=== PATIENT | female | born 1965 | race Caucasian/White ===

== ENCOUNTER → 2016-05-18 | Outpatient (CLI) | payer BC ==
[~2016-05-18] MED LIST: ASCO100T PO; ATV1HP PO; B-COTAB18 PO; BUPR-79 PO; BUPR-83 PO; CEFU1TAB36 PO; CONJ.6255 PO; ESCI10TA17 PO; LORA-741 PO; MAGN400T7 PO; OXYC1TAB3 PO; PRT/20 PO
== END | disposition home or self-care (01) ==
LOC: C.LABSPEC 10:58
PROVIDERS: ATTEND Obstetrics & Gynecology
DX: N89.8 Other specified noninflammatory disorders of vagina (principal)

== ENCOUNTER → 2016-05-18 | Outpatient (CLI) | payer BC | END | disposition home or self-care (01) | LOC: C.PATHSPEC 17:24 | PROVIDERS: ATTEND Plastic Surgery | DX: L72.9 Follicular cyst of the skin and subcutaneous tissue, unspecified (principal) ==

== ENCOUNTER 2016-07-10 06:38 | Emergency (ER) | payer BC ==
[~2016-07-10] VITALS: Ht 162.6 cm; Wt 79.3 kg
[~2016-07-10 06:38] MED LIST changes: -ASCO100T PO; +ASCO100T4 PO; -BUPR-79 PO; -BUPR-83 PO; -LORA-741 PO; -OXYC1TAB3 PO; -PRT/20 PO
[2016-07-10 06:41] VITALS: TEMP 36.9; Ht 162.6 cm; Wt 79.3 kg
[2016-07-10] MEDS ORDERED: LORA-741 PO (07:03)
[2016-07-10] MEDS ORDERED: BUPR-83 PO ×2 (07:04)
[2016-07-10] MEDS ORDERED: OXYCODONE HCL IR 5 MG TAB (IMMEDIATE RELEASE) PO STA (07:18)
[2016-07-10] MEDS ORDERED: DIPHTHERIA/TETANUS/PERTUSSIS 0.5 ML SYR/VIAL IM. ONE (07:30)
[2016-07-10] MEDS ORDERED: XYLOCAINE 1%/SOD BICARB 20 ML VIAL INFIL ONE (07:30)
--- NOTE | 2016-07-10 08:10 | EMERGENCY ROOM VISIT NOTE ---
ED Visit Note First contact with patient: 07:02 CHIEF COMPLAINT: Infection on the right breast 5 days HISTORY OF PRESENT ILLNESS: Patient is a 50-year-old white female who presents the emergency department for evaluation of an infection involving her lateral right breast. She states it about a week ago she noticed a "lump" on the breast. She admits that she picked at it, and it got a little bit bruised, then over the last 5 days became more tender, swollen, became red and firm to the touch. She was seen at [facility] 2 days ago and started on cefuroxime 500 mg twice a day. She has had a total of 5 doses of the antibiotic. She states that overnight, she noted blood and pus like drainage on her shirt. She has not had any fevers although reports feeling fatigued. She has showered and cleansed the area with soap and water, otherwise is supple for many other interventions. She does report a history of abscesses which have required drainage, usually in her bikini line. She has been told that she might have hydradenitis. She denies a history of MRSA. REVIEW OF SYSTEMS: Review of systems as per HPI. All other systems reviewed were negative. At least 6 systems reviewed. PMH: Electronic medical records are reviewed and summarized as above/below. See Problem List. Her tetanus is not up-to-date. SOCIAL HISTORY: Patient lives at home with her . PHYSICAL EXAM: Vital Signs: Reviewed Nurse's notes. CONSTITUTIONAL: Patient is a well-appearing, slightly anxious 60-year-old white female who is awake and alert and in no acute distress. INTEGUMENTARY: Examination of the right breast show a small eroded ulceration just off of the nipple at 9:00, with associated induration and surrounding erythema. The area is tender to palpation centrally. There is slight fluctuance noted. No axial lymphadenopathy appreciated. EMERGENCY DEPARTMENT COURSE: The patient was medicated with oxycodone 5 mg orally. Tetanus was updated. The area was cleansed with Betadine and draped sterilely. 1% plain buffered lidocaine was infiltrated around the opening in the abscess, and it was opened slightly using an 11 blade. A small amount of purulent material was present and a culture was obtained and is pending. The cavity was probed for loculations and there were none. There was some sebaceous material present in the base of the wound which was irrigated copiously with normal saline solution. I suspect the patient has a sebaceous cyst in this area which became infected. Part of a 2 x 2 was dipped in Betadine and placed in the wound as packing. Wound care measures were discussed with the patient. She was encouraged to continue the cefuroxime, pending cultures, as she does have several antibiotic allergies . She has some surrounding erythema but does not have evidence for overt cellulitis or mastitis. She was advised that the cyst is potentially the abscess could recur and was encouraged to follow-up with her PCP when the infection has healed she may benefit from referral to the breast care center. The patient was discharged home in good condition with her driving. She rated her discomfort a 2/10 at that time. Problem List Medical Problems: (1) Anxiety Status: Chronic (2) Anxiety Status: Resolved (3) Depression Status: Chronic (4) Hyperlipidemia Nec/Nos Status: Chronic (5) Vertigo Status: Chronic Current/Historical Medications Scheduled Bupropion (Wellbutrin), 100 MG PO QAM Bupropion (Wellbutrin), 150 MG PO HS Cefuroxime Axetil (Cefuroxime Axetil), 1 TAB PO BID Escitalopram (Lexapro), 5 MG PO QPM Scheduled PRN Lorazepam (Ativan), 0.5 MG PO DAILY PRN for Anxiety and/or Sedation Oxycodone Immediate Rel Tab (Roxicodone Ir), 1-2 TAB PO Q4H PRN for Severe Pain Allergies Coded Allergies: Ampicillin (Verified Allergy, Severe, hives, 07/10/16) Minocycline (Verified Allergy, Unknown, UNK, 07/10/16) Sulfamethoxazole w/Trimethoprim (Verified Allergy, Unknown, UNK, 07/10/16) Vital Signs Date Time Temp Pulse Resp B/P Pulse Ox O2 Delivery O2 Flow Rate FiO2 07/10/16 08:30 78 18 126/77 98 07/10/16 06:41 36.9 86 20 132/88 97 Room Air Medications Administered Medications (Trade) Dose Ordered Sig/Az Route Start Time Stop Time Status Last Admin Dose Admin Diphtheria/ Pertussis/Tetanus Vacc (Adacel Inj) 0.5 ml ONCE ONCE IM. 07/10/16 07:30 07/10/16 07:31 DC 07/10/16 07:31 0.5 ML Oxycodone HCl (Roxicodone Immediate Rel Tab) 5 mg NOW STAT PO 07/10/16 07:18 07/10/16 07:19 DC 07/10/16 07:29 5 MG Departure Information Impression Primary Impression: Breast abscess Prescriptions Oxycodone Immediate Rel Tab (ROXICODONE IR) 5 Mg Tab 1-2 TAB PO Q4H Y for Severe Pain, #15 TAB For Initial Treatment Prov: Shoshana Duron PA 07/10/16 Referrals Pro,Herberth Boucher M.D. (PCP) Patient Instructions My [facility] Additional Instructions DO NOT drive, drink alcohol, operate machinery, or perform dangerous activities today. You were given medications in the ER that can affect your ability to safely function or operate a vehicle. Oxycodone (OxyIR) 5mg: Take 1-2 pills every four hours for breakthrough pain. Avoid alcohol, operating machinery or dangerous equipment, working on ladders or roofs, DRIVING, or situations where being under the influence may be dangerous. It is recommended to use an [id number] stool softener such as Colace, 100mg twice daily while taking this medication to avoid constipation. Finish cefuroxime as previously prescribed. Ibuprofen(Motrin, Advil) may be used for fever or pain. Use 600mg every six hours as needed. Take with food. Avoid using more than 2400mg in a 24 hour period. Do not use 2400mg per day for more than three consecutive days without physician direction. Prolonged inappropriate use can lead to stomach upset or ulcers. This is available over the counter and typically comes in 200mg tablets. (AND/OR) Acetaminophen(Tylenol) may be used for fever or pain. Use 1000mg every eight hours as needed. Avoid using more than 3000mg in a 24 hour period. This is available over the counter. Read all the package inserts or medication information paperwork provided. If you have any questions or concerns call your primary provider, pharmacist or the ER for assistance. Warm compresses to the affected area 4 times daily for 15-20 minutes. Dressing changes daily, more often if the bandage becomes saturated or soiled. Packing removal in 48 hours. Careful to not inadvertently removed the packing when changing the bandage were evening. Rest and drink plenty of fluids. Continue current medications. Return to the ER for severe pain, persistent fevers, spreading redness, or any worsening of your condition. Follow up with your primary physician as scheduled. You may require referral to the breast care center/breast surgeon for further care and evaluation once the area has healed.
[2016-07-10] MEDS ORDERED: OXYC1TAB3 PO (08:11)
[2016-07-10 08:30] VITALS: BP 126/77; PULSE 78; O2SAT 98
[2016-11-09] MEDS ORDERED: BUPR-79 PO (07:45)
[2016-11-09] MEDS ORDERED: PRT/20 PO (07:45)
== END 2016-07-10 08:37 | disposition home or self-care (01) ==
LOC: C.EDB 06:39
DX: N61.1 Abscess of the breast and nipple (principal); F41.9 Anxiety disorder, unspecified; F32.9 Major depressive disorder, single episode, unspecified; E78.5 Hyperlipidemia, unspecified; R42 Dizziness and giddiness; Z79.899 Other long term (current) drug therapy

== ENCOUNTER → 2016-08-09 | Outpatient (CLI) | payer BC ==
[~2016-08-09] MED LIST changes: -ASCO100T4 PO; -ATV1HP PO; -B-COTAB18 PO; +BUPR-79 PO; +BUPR-83 PO; -CONJ.6255 PO; +LORA-741 PO; -MAGN400T7 PO; +OXYC1TAB3 PO; +PRT/20 PO
--- NOTE | 2016-08-09 14:10 | MAMMOGRAPHY REPORT ---
ULTRASOUND OF RIGHT BREAST: 08/09/2016 CLINICAL HISTORY: The patient was seen in the emergency room on 07/10/2016 for a breast abscess, which was lanced in the emergency room and packed and the patient was placed on antibiotics. She reports that she is no longer packing the wound and it is no longer painful. COMPARISON: Comparison is made to exams dated: 11/16/2011 ultrasound, 11/09/2011 mammogram, and 11/16/19 mammogram - [facility]. TECHNIQUE: Real-time targeted ultrasound of the right breast was performed. FINDINGS: Real-time, high-resolution targeted ultrasound was performed of the previous abscess pointed out by the patient, in the right breast at approximately 9:00, 4 cm from the nipple. At the site of the re sidual wound there is mild focal hypo-echogenicity of the skin, measuring 2.4 x 0.1 cm. No focal fl uid collection is seen within the skin or in the underlying breast parenchyma to suggest residual ab scess. No suspicious masses are noted. Note that the patient is due for bilateral mammograms, however, the patient declined mammography tod ay due to concerns about compressing the wound. IMPRESSION: ACR BI-RADS CATEGORY 2: BENIGN - FOLLOW-UP RECOMMENDED No evidence of residual abscess at the site of the healing wound from recent abscess drainage in the right breast at approximately 9:00. There is no sonographic evidence of malignancy. Recommend clin ical follow-up; the patient reports she will be seeing Dr. Bernal today. The patient is also due for bilateral yearly mammograms, which she declined today; these should be performed as soon as the patient can tolerate compression. The patient was verbally notified of the results. Sara Tate M.D. /:08/09/2016 08:59:04 Front End Developer: Sara Tate MD, [facility] letter sent: Normal 1/2 BI-RADS Code: ACR BI-RADS Category 2: Benign
== END | disposition home or self-care (01) ==
LOC: C.MAMM 08:09
PROVIDERS: ATTEND Nurse Practitioner Adult Health
DX: N61.1 Abscess of the breast and nipple (principal)

== ENCOUNTER → 2016-10-25 | Outpatient (CLI) | payer BC ==
[2016-10-25 16:57] LABS: URINE APPEARANCE CLEAR (CLEAR); URINE BILIRUBIN NEG (NEG); URINE COLOR YELLOW; URINE NITRITE NEG (NEG); URINE PH 6.5 (4.5-7.5); URINE SPECIFIC GRAVITY 1.006 (1.000-1.030); UROBILINOGEN NEG (NEG)
[2016-10-25 17:00] LABS: MANUAL MICROSCOPIC REQUIRED? NO; REVIEW REQ? YES
== END | disposition home or self-care (01) ==
LOC: C.LABSPEC 16:18
PROVIDERS: ATTEND Obstetrics & Gynecology
DX: R35.0 Frequency of micturition (principal)

== ENCOUNTER → 2016-10-25 | Outpatient (CLI) | payer BC | END | disposition home or self-care (01) | LOC: C.PAPS 17:08 | PROVIDERS: ATTEND Obstetrics & Gynecology | DX: Z01.419 Encounter for gynecological examination (general) (routine) without abnormal findings (principal) ==

== ENCOUNTER → 2016-11-21 | Day surgery (SDC) | payer BC ==
[2016-11-09 07:45] VITALS: Ht 162.6 cm; Wt 84.1 kg
[~2016-11-21] VITALS: Ht 162.6 cm; Wt 84.1 kg
[~2016-11-21] MED LIST changes: -BUPR-83 PO; -CEFU1TAB36 PO; -ESCI10TA17 PO; +FENTANYL CITRATE INJ 50 MCG/1 ML 2 ML VIAL ONE; +LIDOCAINE HCL 2% 2 ML VIAL (20MG/ML) ONE; -OXYC1TAB3 PO; +PROPOFOL IV EMULSION 10 MG/ML 20 ML VIAL IV ONE; +SODIUM CHLORIDE 0.9% 500ML 500 ML IV ONE
[2016-11-21 09:40] VITALS: TEMP 37.2
--- NOTE | 2016-11-21 09:55 | Endo History and Physical ---
History & Physical Date of Service: Nov 21, 2016. Chief Complaint: acid reflux Referring Physician: Dr. Herberth Kidd History of Present Illness 50 yo CF who presents for EGD secondary to GERD. Past Surgical History Hx Cardiac Surgery: No Hx Internal Defibrillator: No Hx Pacemaker: No Hx Abdominal Surgery: Yes (UMBILICAL HERNIA REPAIR) Hx of Implantable Prosthesis: No Hx Post-Op Nausea and Vomiting: Yes Hx Cancer Surgery: No Hx Thoracic Surgery: No Hx Orthopedic: No Hx Urinary Tract Surgery: No Family History None Social History Smoking Status: Former Smoker Hx Substance Use: No Hx Alcohol Use: No Allergies Coded Allergies: Ampicillin (Verified Allergy, Severe, HIVES, 11/09/16) Minocycline (Verified Allergy, Unknown, VIOLENT EMESIS, 11/09/16) Sulfamethoxazole w/Trimethoprim (Verified Allergy, Unknown, "PASSED OUT", 11/09/16) Current Medications Reported Home Medications Medications Dose Route/Sig Max Daily Dose Days Date Category Protonix (Pantoprazole Sodium) 20 Mg Tab 20 Mg PO QAM 11/09/16 Reported Wellbutrin Sr (Bupropion HCl) 150 Mg Ertab 150 Mg PO BID 11/09/16 Reported Ativan (Lorazepam) 0.5 Mg Tab 0.5 Mg PO DAILY PRN 07/10/16 Reported Vital Signs Weight (Kilograms): 84.09 Height (Feet): 5 Height (Inches): 4 Date Time Temp Pulse Resp B/P (MAP) Pulse Ox O2 Delivery O2 Flow Rate FiO2 11/21/16 09:40 37.2 87 16 132/78 (96) 100 Room Air Physical Exam General Appearance: WD/WN, no apparent distress Respiratory/Chest: Auscultation: breath sounds normal Cardiovascular: Heart Auscultation: RRR Abdomen: Bowel Sounds: normal Inspection & Palpation: soft, non-distended, no tenderness, guarding & rebound Assessment and Plan Assessment: 50 yo CF who presents for EGD secondary to GERD. Plan: Proceed with EGD
--- NOTE | 2016-11-21 10:14 | GI REPORT ---
Procedure Date: 11/21/2016 9:59 AM Procedure: Upper GI endoscopy Indications: Gastro-esophageal reflux disease Medicines: Monitored Anesthesia Care Complications: No immediate complications. Estimated Blood Loss: Estimated blood loss: none. Procedure: Pre-Anesthesia Assessment: - Prior to the procedure, a History and Physical was performed, and patient medications and allergies were reviewed. The patient's tolerance of previous anesthesia was also reviewed. The risks and benefits of the procedure and the sedation options and risks were discussed with the patient. All questions were answered, and informed consent was obtained. Prior Anticoagulants: The patient has taken no previous anticoagulant or antiplatelet agents. ASA Grade Assessment: II - A patient with mild systemic disease. After reviewing the risks and benefits, the patient was deemed in satisfactory condition to undergo the procedure. After obtaining informed consent, the endoscope was passed under direct vision. Throughout the procedure, the patient's blood pressure, pulse, and oxygen saturations were monitored continuously. The scope was introduced through the mouth, and advanced to the second part of duodenum. The upper GI endoscopy was accomplished without difficulty. The patient tolerated the procedure well. Findings: The esophagus was normal. The entire examined stomach was normal. Biopsies were taken with a cold forceps for histology. The examined duodenum was normal. Impression: - Normal esophagus. - Normal stomach. Biopsied. - Normal examined duodenum. Recommendation: - Resume previous diet. - Continue present medications. - Await pathology results. - Return to primary care physician as previously scheduled. Kvng Valdez DO 11/21/2016 10:14:16 AM This report has been signed electronically. Note Initiated On: 11/21/2016 9:59 AM I attest to the content of the Intraoperative Record and orders documented therein, exceptions below
--- NOTE | 2016-11-21 10:20 | Discharge Instructions ---
Endoscopy Patient Instructions Date / Procedure(s) Performed Nov 21, 2016. EGD Allergy Information Coded Allergies: Ampicillin (Verified Allergy, Severe, HIVES, 11/09/16) Minocycline (Verified Allergy, Unknown, VIOLENT EMESIS, 11/09/16) Sulfamethoxazole w/Trimethoprim (Verified Allergy, Unknown, "PASSED OUT", 11/09/16) Discharge Date / Findings Nov 21, 2016. Gastric antrum biopsies Medication Instructions OK to resume all medications today as prescribed Reported Home Medications Medications Dose Route/Sig Max Daily Dose Days Date Category Protonix (Pantoprazole Sodium) 20 Mg Tab 20 Mg PO QAM 11/09/16 Reported Wellbutrin Sr (Bupropion HCl) 150 Mg Ertab 150 Mg PO BID 11/09/16 Reported Ativan (Lorazepam) 0.5 Mg Tab 0.5 Mg PO DAILY PRN 07/10/16 Reported Provider Instructions Activity Restrictions - No exercising or heavy lifting for 24 hours. - Do not drink alcohol the day of the procedure. - Do not drive a car or operate machinery until the day after the procedure. - Do not make any important decisions or sign important papers in 24 hours after the procedure. Following Day: - Return to full activity which may include returning to work/school. Diet Start your diet with liquids and light foods (jello, soup, juice, toast). Then eat your usual diet if not nauseated. Treatment For Common After Affects For mild abdominal pain, bloating, or excessive gas: - Rest - Eat lightly - Lie on right side Follow-Up Information Follow-up with Dr. Herberth Kidd as scheduled Anesthesia Information What You Should Know You have had a procedure that required some medicine to reduce anxiety and discomfort. This treatment is called moderate sedation. After receiving the treatment, you may be sleepy, but you will be able to breathe on your own. The effects of the treatment may last for several hours. Follow these instructions along with Activity/Diet recommendations noted above: * Do NOT do anything where dizziness or clumsiness would be dangerous. * Rest quietly at home today, then you can be up and about tomorrow. * Have a responsible person stay with you the rest of today. * You may have had an I.V. today. If so, you may take the dressing off later today. Recommendations Call your doctor if: * Trouble breathing * Continuous vomiting for more than 24 hours * Temperature above 101 degrees * Severe abdominal pain or bloating * Pain not relieved by pain medicine ordered * There is increased drainage or redness from any incision * A large amount of rectal bleeding greater than 2-3 tablespoons. (If you had a polyp/s removed or have hemorrhoids, a small amount of blood - from the rectum is to be expected.) * You have any unanswered questions or concerns. IN THE EVENT OF A SERIOUS EMERGENCY, GO TO THE NEAREST EMERGENCY ROOM Your discharge instructions were prepared by provider Kvng Valdez. Patient Instructions Signature Page Chen Hdez Patient (or Guardian) Signature/Date: I have read and understand the instructions given to me by my caregivers. Caregiver/RN/Doctor Signature/Date: The above-named patient and/or guardian has received patient instructions on this date. + Original Patient Signature Page (only) stays with chart. Please make copy for patient.
[2016-11-21 10:42] VITALS: BP 115/78; PULSE 74; O2SAT 98
--- NOTE | 2016-11-21 10:50 | Anesthesiology Progress Note ---
Anesthesia Post Op Note Date & Time Nov 21, 2016 at 10:50 Vital Signs Pain Intensity: 0 Vital Signs Past 12 Hours Date Time Temp Pulse Resp B/P (MAP) Pulse Ox O2 Delivery O2 Flow Rate FiO2 11/21/16 10:42 74 16 115/78 (90) 98 Room Air 11/21/16 10:27 82 16 116/76 (89) 97 Room Air 11/21/16 10:12 86 16 107/68 (81) 100 Room Air 11/21/16 09:40 37.2 87 16 132/78 (96) 100 Room Air Notes Mental Status: alert / awake / arousable, participated in evaluation Pt Amnestic to Procedure: Yes Nausea / Vomiting: adequately controlled Pain: adequately controlled Airway Patency, RR, SpO2: stable & adequate BP & HR: stable & adequate Hydration State: stable & adequate Anesthetic Complications: no major complications apparent
== END | disposition home or self-care (01) ==
LOC: C.GI 09:15
PROVIDERS: ATTEND Internal Medicine
DX: K21.9 Gastro-esophageal reflux disease without esophagitis (principal); K58.8 Other irritable bowel syndrome; Z79.899 Other long term (current) drug therapy; F41.8 Other specified anxiety disorders; E83.42 Hypomagnesemia; Z87.891 Personal history of nicotine dependence

== ENCOUNTER → 2017-04-27 | Day surgery (SDC) | payer BC, OTHER ==
[2017-04-13 13:34] VITALS: Ht 162.6 cm; Wt 75.0 kg
[~2017-04-27] VITALS: Ht 162.6 cm; Wt 75.0 kg
[~2017-04-27] MED LIST changes: +ACETAMINOPHEN 325 MG TAB PO PRN; +ATROPINE SULFATE 0.1 MG/ML 5ML SYR IV PRN; -BUPR-79 PO; +BUPR300T43 PO; +CEFAZOLIN 2000MG IV PUSH 15 ML IV SCH; +CEFAZOLIN SOD 2000MG/15 ML IV PUSH IV ONE; +EpHEDrine SULFATE INJ 50 MG/ML AMP IV PRN; +FENTANYL CITRATE INJ 50 MCG/1 ML 2 ML VIAL IV PRN; +HYDROmorphone INJ 1 MG/ML SYR IV PRN; +KFL/250 PO; +LACTATED RINGER'S 1000ML 1,000 ML IV SCH; +LIDOCAINE/EPINEPHRINE 1% 20 ML VIAL ONE; +MAGN1TAB41 PO; +METOCLOPRAMIDE HCL INJ 5 MG/ML 2 ML VIAL IV PRN; +MIDAZOLAM HCL 1 MG/ML 2ML VIAL ONE; +NURSING VERBAL MED ORDER ONE; +ONDANSETRON INJ 2 MG/ML 2 ML VIAL IV PRN; +ONDANSETRON INJ 2 MG/ML 2 ML VIAL ONE; +OXYCODONE/ACETAMINOPHEN 5-325 TAB PO PRN; +PROMETHAZINE HCL INJ 12.5 MG in SODIUM CHLORIDE 0.9% 50ML 50 ML IV PRN; -PRT/20 PO; +SCOPOLAMINE 1.5 MG TDSY TD ONE; +SODIUM CHLORIDE 0.9% 1000ML 1,000 ML IV SCH; -SODIUM CHLORIDE 0.9% 500ML 500 ML IV ONE
--- NOTE | 2017-04-27 08:14 | History & Physical Bridge - [place] ---
H&P Re-Evaluation Bridge Note: I have examined the patient, reviewed the History & Physical and in the interval since the performance of the History & Physical I have noted the following changes of clinical significance: No changes noted
--- NOTE | 2017-04-27 09:40 | [facility] Post Operative Brief Note ---
Immediate Operative Summary Operative Date Apr 27, 2017. Pre-Operative Diagnosis Hidradenitis Suppurativa Right Breast and Right Groin Post-Operative Diagnosis Same Procedure(s) Performed Right Breast And Right Groin Excision Of Hidradenitis Surgeon Dr. Bernal Teleprinter Surgeon(s) Jon Shaffer PA-C Estimated Blood Loss 2 mL Findings Consistent with Post-Op Diagnosis Specimens A. Right Breast Hidradenitis B. Right Groin Hidradenitis Drains None Anesthesia Type MAC Complication(s) none Disposition Disposition: Recovery Room / PACU
[2017-04-27 09:48] VITALS: TEMP 36.8
--- NOTE | 2017-04-27 09:53 | Discharge Instructions ---
Discharge Instructions Date of Service Apr 27, 2017. Admission Reason for Admission: Hidradenitis Suppurative Discharge Discharge Diagnosis / Problem: hidradenitis suppurative Discharge Goals Goal(s): Decrease discomfort, Improve function Activity Recommendations Activity Limitations: as noted below ACTIVITY RECOMMENDATIONS: __Normal activities _x_No bending, lifting or straining __No driving __Driving allowed when you are off pain medications _x_Walking permitted __You should have help at home for ___ days DRESSINGS: __No dressings required __Keep dressings dry/in place until first office visit _x_Remove dressings __on Sunday_ and leave dressings off if desired. _x_Apply ice _3__ days __Remove dressings and reapply garment __Apply antibiotic ointment (Bacitracin, Neosporin, etc) to wounds 3-4 times/ day for 10 days BATHING: __Keep dressings dry __Sponge bathing permitted _x_Showering permitted on Sunday after removing dressing. Let the water run over your incisions and pat dry. Do not use any ointments or lotions on your incisions. _x_No swimming, hot tubs or soaking in a tub MEDICATIONS: Resume previous medications unless instructed otherwise by your surgeon. _x_Do not use aspirin, Motrin, Advil or Ibuprofen as these may promote bleeding. Please use Tylenol. _x_Prescription(s) provided: pain medication was provided at your last office visit OTHER INSTRUCTIONS: __Record drain output 2-3 times per day SPECIAL CARE INSTRUCTIONS: * It is normal to have a mild fever after surgery. If your temperature is higher than 101.5 degrees F, please call the office at [phone]. * Constipation is a typical side effect of pain medication. An over-the- counter stool softener will help relieve this. * Leaking around surgical drains may occur and should not cause concern. Sometimes these drains become clogged. If this happens, remove the bulb and milk the clot out of the tube, then replace the bulb. * Drainage from wounds after liposuction is normal and should be expected. Garments will become soiled. You should protect furniture and bedding. This drainage should mostly subside within 2-3 days. Leave garments in place unless instructed to remove them. * If you have unusual drainage from a wound or are concerned you have an infection or have any questions or concerns, please call the office at [phone]. FOLLOW UP VISIT: If not already scheduled, please call the office, , when you return home after surgery to schedule an appointment to be seen in __14_ days. . Current Hospital Diet Patient's current hospital diet: Discharge Diet Recommended Diet: Regular Diet Procedures Procedures Performed: Right Breast And Right Groin Excision Of Hidradenitis Pending Studies Studies pending at discharge: yes List of pending studies: pathology Medical Emergencies . Who to Call and When: Medical Emergencies: If at any time you feel your situation is an emergency, please call 911 immediately. . Non-Emergent Contact Non-Emergency issues call your: Primary Care Provider, Surgeon . "Provider Documentation" section prepared by Ayesha Shaffer. . VTE Core Measure Inpt VTE Proph given/why not?: SCD's [place] Drug Monitoring Program Search Results: no issues identified
--- NOTE | 2017-04-27 10:08 | Anesthesia Progress Nt - [facility] ---
Anesthesia Post Op Note Date & Time Apr 27, 2017 at 10:08 Vital Signs Pain Intensity: 0 Vital Signs Past 12 Hours Date Time Temp Pulse Resp B/P (MAP) Pulse Ox O2 Delivery O2 Flow Rate FiO2 04/27/17 09:48 36.8 83 16 112/67 (82) 98 Room Air 04/27/17 07:47 36.7 75 18 124/85 (98) 97 Room Air Notes Mental Status: alert / awake / arousable, participated in evaluation Pt Amnestic to Procedure: Yes Nausea / Vomiting: adequately controlled Pain: adequately controlled Airway Patency, RR, SpO2: stable & adequate BP & HR: stable & adequate Hydration State: stable & adequate Anesthetic Complications: no major complications apparent
[2017-04-27 10:13] VITALS: BP 124/84; PULSE 75; O2SAT 98
--- NOTE | 2017-04-27 11:52 | OPERATIVE REPORT ---
DATE OF OPERATION: 04/27/2017 PREOPERATIVE DIAGNOSIS: Hidradenitis of the right breast and right groin. POSTOPERATIVE DIAGNOSIS: Same. PROCEDURE: Excision of hidradenitis, right breast and right groin. INDICATION FOR THE PROCEDURE: The patient is a 51-year-old female with longstanding history of recurrent inflamed epidermal cyst and abscesses with tunneling, presumed to be hidradenitis. She tried multiple nonsurgical modalities including antibiotics and cleansing washes without success. She also was able to successfully stop smoking with no improvement in her symptomatology. BRIEF DESCRIPTION OF THE PROCEDURE: Risks, benefits, and alternatives of the procedure were explained to the patient who agreed and signed consent. She was identified and marked in the preoperative holding area. She was brought to the operating room where she was positioned supine and placed under sedation without incident. Surgical sites were prepped and draped sterilely. A time-out procedure was performed. I began with the right breast. Laterally around the 3 o'clock position, there was a 2-cm cystic structure with surrounding induration and subcutaneous nodularity. It was marked in an elliptical fashion for excision. Lidocaine 1% with epinephrine was used to anesthetize the wound edges and planned incisions. A 15-blade scalpel was used to make the incision into the underlying dermis. The incision was deepened using electrocautery into underlying subcutaneous fat. The entire cystic mass was able to be excised and dissected without any evidence of further tunneling into the subcutaneous tissue. Hemostasis was achieved with electrocautery. The wound was reapproximated using 3-0 Vicryl interrupted deep dermal sutures and 3-0 Monocryl running subcuticular suture. Total wound closure length was 5 cm. Dermabond was applied. Attention was then turned to the right groin. There were multiple dilated pores, a small sinus tract and cystic structures as well as scarring noted in the right groin. I marked an area for a wide excision, which in total length measuring about 10 cm by about 4 cm. The planned incisions were anesthetized using 1% lidocaine with epinephrine. A 15-blade scalpel was used to make the incision into underlying subcutaneous fat. Care was taken to not incise the deeper fascial layer in order to preserve lymphatic drainage. Electrocautery was used to deepen the incisions and excise the infected tissue. Following excision, no remaining tunnels were identified. There were several hair follicles deep within the subcutaneous tissue, which were either excised or cauterized in order to prevent follicles from being trapped in the scar. After achieving hemostasis, 0 Ethibond suture was used to suture the deep dermis to Colles' fascia along the groin to prevent scar spread and scar visibility. 3-0 Vicryl interrupted dermal sutures were then placed followed by 3-0 Monocryl running subcuticular suture. Total wound closure length was of 11 cm. Dermabond and dry dressings were applied. The procedure was tolerated well. The patient was awakened and transferred to recovery in satisfactory condition. I attest to the content of the Intraoperative Record and any orders documented therein. Any exception s are noted below.
== END | disposition home or self-care (01) ==
LOC: X.SURG 07:26
PROVIDERS: ATTEND Plastic Surgery
DX: L73.2 Hidradenitis suppurativa (principal); L83 Acanthosis nigricans; F17.200 Nicotine dependence, unspecified, uncomplicated; Z90.710 Acquired absence of both cervix and uterus; Z98.818 Other dental procedure status; Z98.890 Other specified postprocedural states; F41.9 Anxiety disorder, unspecified; Z88.0 Allergy status to penicillin; Z88.1 Allergy status to other antibiotic agents; Z82.49 Family history of ischemic heart disease and other diseases of the circulatory system; Z80.8 Family history of malignant neoplasm of other organs or systems; Z80.6 Family history of leukemia; Z84.1 Family history of disorders of kidney and ureter; Z80.3 Family history of malignant neoplasm of breast; Z81.8 Family history of other mental and behavioral disorders